=== PATIENT | female | born 1960 | race Caucasian/White ===

== ENCOUNTER 2023-12-04 18:50 | Emergency (ER) | payer MEDICAID ==
[~2023-12-04] VITALS: Ht 160 cm; Wt 74.8 kg
[2023-12-04] MEDS ORDERED: ONDANSETRON ODT 4 MG TAB.RAPDIS ONE (19:47)
[2023-12-04] MEDS ORDERED: HYDROMORPHONE 1 MG/1 ML DISP.SYRIN ONE (19:47)
[2023-12-04] MEDS: ONDANSETRON ODT 4 MG TAB.RAPDIS SL ONE (19:50)
[2023-12-04] MEDS: HYDROMORPHONE 1 MG/1 ML DISP.SYRIN IM ONE (19:50)
[2023-12-04] MEDS ORDERED: CYCL10TA9 PO (21:54)
[2023-12-04] MEDS ORDERED: HYDR-4209 PO (21:54)
[2023-12-04 22:20] VITALS: BP 131/79; TEMP 98.9; O2SAT 98
== END 2023-12-04 21:45 | disposition home or self-care (01) ==
LOC: ER 18:54
DX: S16.1XXA Strain of muscle, fascia and tendon at neck level, initial encounter (principal); M54.50 Low back pain, unspecified; E11.9 Type 2 diabetes mellitus without complications; Z98.890 Other specified postprocedural states; V89.2XXA Person injured in unspecified motor-vehicle accident, traffic, initial encounter; Y93.89 Activity, other specified; Y92.89 Other specified places as the place of occurrence of the external cause; Y99.8 Other external cause status
CPT/HCPCS: 99285; 72125; 72110; 96372; J1170; A4606; A4663; Q0162